=== PATIENT | male | born 1985 | race African-American/Black ===

== ENCOUNTER 2016-11-13 08:45 | Emergency (ER) | payer MEDICARE ==
[~2016-11-13] VITALS: Ht 172.7 cm; Wt 84.1 kg
[2016-11-13] MEDS ORDERED: VALT1TAB PO (10:38)
[2016-11-13] MEDS ORDERED: LIDOCAINE 1% MDV 20ML VIAL As Ordered ONE (10:38)
[2016-11-13] MEDS ORDERED: cefTRIAXone SOD 250 MG VIAL (J0696) IM ONE (10:45)
[2016-11-13] MEDS ORDERED: AZITHROMYCIN 250 MG TAB PO ONE (10:45)
[2016-11-13 11:04] VITALS: BP 140/100
== END 2016-11-13 11:05 | disposition home or self-care (01) ==
LOC: M ED 09:11
DX: N34.2 Other urethritis (principal); L73.9 Follicular disorder, unspecified; A60.02 Herpesviral infection of other male genital organs
CPT/HCPCS: 81001; 87086; 87491; 87591; 96372; 99282; J0696

== ENCOUNTER 2016-12-30 16:57 | Emergency (ER) | payer MEDICARE, MEDICAID ==
[~2016-12-30] VITALS: Ht 172.7 cm; Wt 77.2 kg
[~2016-12-30 16:57] MED LIST: VALT1TAB PO
[2016-12-30 16:59] VITALS: BP 132/89
[2016-12-30] MEDS ORDERED: METHOCARBAMOL 500 MG TAB PO ONE (17:30)
[2016-12-30] MEDS ORDERED: NORCO, ANEXSIA 5/325MG TABLET (HYDROcodone/ACETAMINOPHEN) PO ONE (17:30)
--- NOTE | 2016-12-30 18:00 | REP ---
CT of the brain without IV contrast: Comparison is 12/14/2015. There is no subdural or epidural hematoma. There is no other intracranial hemorrhage. There is no edema, mass effect or midline shift. Cortical stripe is unremarkable. Ventricles are normal size and midline. The visualized paranasal sinuses and mastoid air cells are clear. Impression: Essentially negative CT study of the brain. No change from the prior study. Signed by Walker Negro MD 12/30/2016 05:51 P
--- NOTE | 2016-12-30 18:07 | REP ---
Lumbar spine five views: There are no comparisons. Vertebral body heights, interspacing alignment are normal. No compression deformities. There is no spondylolysis or spondylolisthesis. The pedicles, facets and sacroiliac articulations are unremarkable. There is a small calcification in the annulus anteriorly at D 12/ L1, likely degenerative. Impression: Essentially negative lumbar spine. Signed by Walker Negro MD 12/30/2016 05:59 P
--- NOTE | 2016-12-30 18:08 | REP ---
Thoracic spine four views: Vertebral body heights, interspacing alignment are normal. No compression deformities or listhesis. The pedicles are unremarkable. Mineralization is normal. Impression: Negative thoracic spine. Signed by Walker Negro MD 12/30/2016 06:00 P
[2016-12-30] MEDS ORDERED: IBUP80TA PO (18:14)
[2016-12-30] MEDS ORDERED: ROBA500T PO (18:14)
== END 2016-12-30 18:19 | disposition home or self-care (01) ==
LOC: M ED 16:57
DX: S33.5XXA Sprain of ligaments of lumbar spine, initial encounter (principal); S23.3XXA Sprain of ligaments of thoracic spine, initial encounter; S00.83XA Contusion of other part of head, initial encounter; V49.50XA Passenger injured in collision with unspecified motor vehicles in traffic accident, initial encounter; Y92.410 Unspecified street and highway as the place of occurrence of the external cause; Y93.9 Activity, unspecified; Y99.8 Other external cause status; F17.200 Nicotine dependence, unspecified, uncomplicated

== ENCOUNTER 2017-01-02 11:56 | Emergency (ER) | payer MEDICARE, MEDICAID ==
[~2017-01-02] VITALS: Ht 172.7 cm; Wt 83.6 kg
[~2017-01-02 11:56] MED LIST changes: +IBUP80TA PO; +ROBA500T PO
[2017-01-02] MEDS ORDERED: MIRA3350 PO (14:57)
[2017-01-02 15:17] VITALS: BP 139/96
--- NOTE | 2017-01-05 09:37 | REP ---
SUPINE ABDOMEN: 01/02/2017. Clinical history: Constipation, evaluate for obstruction. Scattered amounts of stool in the right colon to the splenic flexure and some in the rectum but no distension of the colon. No dilated small bowel loops. Bones are intact. There are no abnormal calcifications. Impression: 1. Gas pattern unremarkable. There are no signs of obstruction or abnormal distension of bowel loops. No significant constipation. Signed by Rogelio Perdomo MD 01/05/2017 10:29 A
== END 2017-01-02 15:19 | disposition home or self-care (01) ==
LOC: M ED 11:56
DX: K59.00 Constipation, unspecified (principal)

== ENCOUNTER 2017-05-03 10:26 | Emergency (ER) | payer MEDICAID, MEDICARE ==
[~2017-05-03 10:26] MED LIST changes: +MIRA3350 PO
--- NOTE | 2017-05-03 11:24 | REP ---
RIGHT HAND, FOUR VIEWS: HISTORY: Pain. There is a nondisplaced fracture of the base of the third metacarpal. There is no dislocation. The joint spaces are normal in appearance. IMPRESSION: Nondisplaced fracture of the base of the third metacarpal. Signed by Lb Russ MD 05/03/2017 12:10 P
[2017-05-03] MEDS ORDERED: NORCOTAB PO (12:17)
[2017-05-03 12:27] VITALS: BP 150/89
[2017-05-03] MEDS ORDERED: NORCO, ANEXSIA 5/325MG TABLET (HYDROcodone/ACETAMINOPHEN) PO ONE (12:30)
== END 2017-05-03 12:30 | disposition home or self-care (01) ==
LOC: M ED 10:26
DX: S62.342A Nondisplaced fracture of base of third metacarpal bone, right hand, initial encounter for closed fracture (principal); Y04.8XXA Assault by other bodily force, initial encounter; Y92.410 Unspecified street and highway as the place of occurrence of the external cause; Y93.89 Activity, other specified; Y99.8 Other external cause status

== ENCOUNTER 2020-10-19 17:51 | Emergency (ER) | payer MEDICAID, MEDICARE ==
[~2020-10-19] VITALS: Ht 175.3 cm; Wt 90.1 kg
[2020-10-19 17:51] VITALS: BP 157/78
[~2020-10-19 17:51] MED LIST changes: +HYDR-3715 PO
[2020-10-19] MEDS ORDERED: CYCLOBENZAPRINE 10MG TABLET PO ONE (18:10)
[2020-10-19] MEDS ORDERED: KETOROLAC 30 MG/ML 1ML VIAL IV ONE (18:10)
[2020-10-19] MEDS ORDERED: NAPR-837 PO (18:12)
[2020-10-19] MEDS ORDERED: CYCL5TAB PO (18:12)
[2020-10-19] MEDS ORDERED: KETOROLAC 60MG 2ML VIAL IM ONE (18:20)
== END 2020-10-19 19:04 | disposition home or self-care (01) ==
LOC: M ED 17:51
DX: S13.4XXA Sprain of ligaments of cervical spine, initial encounter (principal); X58.XXXA Exposure to other specified factors, initial encounter; Y92.9 Unspecified place or not applicable; Y93.9 Activity, unspecified; Y99.9 Unspecified external cause status; F12.10 Cannabis abuse, uncomplicated
CPT/HCPCS: 96372; 99282; J1885

== ENCOUNTER 2021-06-28 09:16 | Emergency (ER) | payer MEDICARE, MEDICAID ==
[~2021-06-28] VITALS: Ht 172.7 cm; Wt 91.9 kg
[~2021-06-28 09:16] MED LIST changes: +CYCL5TAB PO; +NAPR-837 PO
[2021-06-28] MEDS ORDERED: METH-1164 PO ×2 (11:14→11:15)
[2021-06-28] MEDS ORDERED: LIDOCAINE 5% (LIDODERM) PATCH TD ONE (11:15)
[2021-06-28] MEDS ORDERED: methocarbamoL 500 MG TAB PO ONE (11:15)
[2021-06-28] MEDS ORDERED: KETOROLAC 30 MG/ML 1ML VIAL IM ONE (11:15)
[2021-06-28 11:59] VITALS: BP 139/86
[2021-06-28] MEDS ORDERED: **NOTE PATIENT COMMENT** MISC XX SCH (21:00)
== END 2021-06-28 12:01 | disposition home or self-care (01) ==
LOC: M ED 09:16
DX: S16.1XXA Strain of muscle, fascia and tendon at neck level, initial encounter (principal); X58.XXXA Exposure to other specified factors, initial encounter; Y92.89 Other specified places as the place of occurrence of the external cause; F17.210 Nicotine dependence, cigarettes, uncomplicated
CPT/HCPCS: 96372; 99283; J1885

== ENCOUNTER 2022-06-11 08:55 | Emergency (ER) | payer MEDICARE, MEDICAID ==
[~2022-06-11] VITALS: Ht 172.7 cm; Wt 94.4 kg
[~2022-06-11 08:55] MED LIST changes: +METH-1164 PO
[2022-06-11] MEDS ORDERED: CYCLOBENZAPRINE 10MG TABLET PO ONE (12:05)
[2022-06-11] MEDS ORDERED: LIDOCAINE 5% (LIDODERM) PATCH TD ONE (12:05)
[2022-06-11] MEDS ORDERED: IBUP80TA PO (12:05)
[2022-06-11] MEDS ORDERED: LIDO5DIS41 TOP (12:05)
[2022-06-11] MEDS ORDERED: CYCL-707 PO (12:05)
[2022-06-11] MEDS ORDERED: ACETAMINOPHEN 500 MG TAB PO ONE (12:05)
[2022-06-11] MEDS ORDERED: KETOROLAC 60MG 2ML VIAL IM ONE (12:05)
[2022-06-11 12:14] VITALS: BP 132/87
== END 2022-06-11 12:32 | disposition home or self-care (01) ==
LOC: M ED 08:55
DX: S16.1XXA Strain of muscle, fascia and tendon at neck level, initial encounter (principal); S39.012A Strain of muscle, fascia and tendon of lower back, initial encounter; M47.892 Other spondylosis, cervical region; M75.32 Calcific tendinitis of left shoulder; Z79.899 Other long term (current) drug therapy

== ENCOUNTER → 2025-02-16 | Outpatient (CLI) | payer MEDICARE, MEDICAID ==
[~2025-02-16] MED LIST changes: +CYCL-707 PO; -CYCL5TAB PO; +CYCL5TAB4 PO; +LIDO1ADH93 TOP
== END ==
LOC: M RAD 11:31
PROVIDERS: ATTEND Physician Assistant Medical
DX: M25.531 Pain in right wrist (principal)